=== PATIENT | male | born 1960 | race African-American/Black ===

== ENCOUNTER 2019-09-13 22:24 | Inpatient (IN) | payer MEDICARE, OTHER ==
[~2019-09-13] VITALS: Ht 185.4 cm; Wt 75.7 kg
[2019-09-13] MEDS ORDERED: LORA2TAB95 PO (22:42)
[2019-09-13] MEDS ORDERED: OLAN10TA23 PO (22:42)
[2019-09-13] MEDS ORDERED: LORAZEPAM 1 MG TABLET ONE (22:44)
[2019-09-13] MEDS ORDERED: OLANZAPINE 5 MG TABLET ONE (22:44)
[2019-09-13] MEDS ORDERED: OLANZAPINE 5 MG TABLET PO ONE (22:45)
[2019-09-13] MEDS ORDERED: LORAZEPAM 0.5 MG TABLET PO ONE (22:45)
[2019-09-13 23:15] VITALS: BP 126/75
[2019-09-14] MEDS ORDERED: MAGNESIUM HYDROXIDE 30 ML LIQUID UDC PO PRN
[2019-09-14] MEDS ORDERED: MAG HYDROX/AL HYDROX/SIMETH 30 ML LIQUID UDC PO PRN
[2019-09-14 07:30] VITALS: BP 147/86
[2019-09-14 16:00] VITALS: BP 142/86
[2019-09-14] MEDS ORDERED: OLANZAPINE 5 MG TABLET PO SCH (17:00)
[2019-09-14] MEDS: CLONAZEPAM 0.5 MG TABLET PO PRN (19:55)
[2019-09-14 23:18] VITALS: BP 129/80
[2019-09-15] MEDS: OLANZAPINE 5 MG TABLET PO SCH ×2 (08:51→16:39)
[2019-09-15 16:00] VITALS: BP 135/63
[2019-09-15] MEDS: CLONAZEPAM 0.5 MG TABLET PO PRN (20:04)
[2019-09-15] MEDS: ACETAMINOPHEN 325 MG TABLET PO PRN (20:06)
[2019-09-15] MEDS: TEMAZEPAM 7.5 MG CAPSULE PO PRN (22:06)
[2019-09-16] MEDS: CLONAZEPAM 0.5 MG TABLET PO PRN ×2 (06:18→19:30)
[2019-09-16 07:30] VITALS: BP 103/78
[2019-09-16] MEDS: OLANZAPINE 5 MG TABLET PO SCH ×2 (08:13→17:00)
[2019-09-16 15:54] VITALS: BP 109/71
[2019-09-16] MEDS: ACETAMINOPHEN 325 MG TABLET PO PRN (19:32)
[2019-09-16 20:19] VITALS: BP 120/78
[2019-09-16] MEDS: TEMAZEPAM 7.5 MG CAPSULE PO PRN (21:19)
[2019-09-17 07:30] VITALS: BP 138/95
[2019-09-17] MEDS: CLONAZEPAM 0.5 MG TABLET PO PRN ×3 (08:07→16:50)
[2019-09-17] MEDS: OLANZAPINE 5 MG TABLET PO SCH ×2 (08:13→16:50)
[2019-09-17] MEDS: ACETAMINOPHEN 325 MG TABLET PO PRN (12:27)
[2019-09-17 13:00] VITALS: BP 139/88
[2019-09-17] MEDS ORDERED: OLANZAPINE 2.5 MG TABLET PO ONE (14:00)
[2019-09-17 16:00] VITALS: BP_SYST 126; BP_SYST 139; BP_DIAS 78; BP_DIAS 88
[2019-09-17 20:27] VITALS: BP 114/60
[2019-09-18] MEDS: CLONAZEPAM 0.5 MG TABLET PO PRN ×5 (01:06→21:38)
[2019-09-18] MEDS: TEMAZEPAM 7.5 MG CAPSULE PO PRN ×2 (01:06→20:44)
[2019-09-18] MEDS: OLANZAPINE 5 MG TABLET PO SCH ×2 (08:16→16:33)
[2019-09-18 08:18] VITALS: BP 125/71
[2019-09-18] MEDS: ACETAMINOPHEN 325 MG TABLET PO PRN (12:16)
[2019-09-18 20:00] VITALS: BP 112/74
[2019-09-19] MEDS: ACETAMINOPHEN 325 MG TABLET PO PRN ×2 (04:26→12:25)
[2019-09-19 07:30] VITALS: BP 123/79
[2019-09-19] MEDS: CLONAZEPAM 0.5 MG TABLET PO PRN ×4 (08:21→20:28)
[2019-09-19] MEDS: OLANZAPINE 5 MG TABLET PO SCH ×2 (08:21→16:26)
[2019-09-19 15:24] VITALS: BP 126/82
[2019-09-19] MEDS: TEMAZEPAM 7.5 MG CAPSULE PO PRN (21:03)
[2019-09-20] MEDS: CLONAZEPAM 0.5 MG TABLET PO PRN ×2 (03:10→19:27)
[2019-09-20] MEDS: OLANZAPINE 5 MG TABLET PO SCH ×2 (10:20→17:05)
[2019-09-20 15:39] VITALS: BP 138/73
[2019-09-20 19:59] VITALS: BP 128/65
[2019-09-20] MEDS: TEMAZEPAM 7.5 MG CAPSULE PO PRN (21:25)
[2019-09-21] MEDS: CLONAZEPAM 0.5 MG TABLET PO PRN ×3 (04:56→16:28)
[2019-09-21 07:30] VITALS: BP 131/81
[2019-09-21] MEDS: OLANZAPINE 5 MG TABLET PO SCH ×2 (08:03→16:28)
[2019-09-21] MEDS: ACETAMINOPHEN 325 MG TABLET PO PRN (13:06)
[2019-09-21 16:00] VITALS: BP 136/76
[2019-09-21 20:09] VITALS: BP 120/98
[2019-09-21] MEDS: TEMAZEPAM 7.5 MG CAPSULE PO PRN (21:36)
[2019-09-22] MEDS: CLONAZEPAM 0.5 MG TABLET PO PRN (02:56)
[2019-09-22] MEDS: OLANZAPINE 5 MG TABLET PO SCH ×2 (09:00→17:06)
[2019-09-22 16:11] VITALS: BP 140/82
[2019-09-22 20:00] VITALS: BP 129/72
[2019-09-22] MEDS: TEMAZEPAM 7.5 MG CAPSULE PO PRN (20:36)
[2019-09-22] MEDS: ACETAMINOPHEN 325 MG TABLET PO PRN (20:36)
[2019-09-23] MEDS: CLONAZEPAM 0.5 MG TABLET PO PRN ×2 (01:38→13:08)
[2019-09-23] MEDS: ACETAMINOPHEN 325 MG TABLET PO PRN (02:53)
[2019-09-23 08:00] VITALS: BP 150/97
[2019-09-23] MEDS: OLANZAPINE 5 MG TABLET PO SCH (09:02)
== END 2019-09-23 15:24 | DRG 885 ==
LOC: ER 22:27 → GPS 22:54
PROVIDERS: ADMIT Psychiatry & Neurology Psychiatry; ATTEND Hospitalist
DX: F20.0 Paranoid schizophrenia (principal); F03.91 Unspecified dementia, unspecified severity, with behavioral disturbance; E46 Unspecified protein-calorie malnutrition; Z68.1 Body mass index [BMI] 19.9 or less, adult; F12.10 Cannabis abuse, uncomplicated; F17.210 Nicotine dependence, cigarettes, uncomplicated; Z91.14 Patient's other noncompliance with medication regimen; Z91.19 Patient's noncompliance with other medical treatment and regimen; E78.5 Hyperlipidemia, unspecified; F10.20 Alcohol dependence, uncomplicated; Y90.9 Presence of alcohol in blood, level not specified
CPT/HCPCS: 36415; 71045; 93005; A4663